=== PATIENT | male | born 1975 | race Caucasian/White ===

== ENCOUNTER 2016-12-12 02:33 | Emergency (ER) | payer OTHER ==
[~2016-12-12] VITALS: Ht 180.3 cm; Wt 76.3 kg
[2016-12-12 02:38] VITALS: TEMP 36.9; Ht 180.3 cm; Wt 76.3 kg
[2016-12-12] MEDS ORDERED: AMOXICILLIN HOME PACK 250 MG/TAB PO ONE (03:30)
[2016-12-12] MEDS ORDERED: AMOX500T3 PO (03:50)
--- NOTE | 2016-12-12 03:50 | EMERGENCY ROOM VISIT NOTE ---
ED Visit Note First contact with patient: 02:55 CHIEF COMPLAINT: Toothache HISTORY OF PRESENT ILLNESS: This 41-year-old male patient presented to the emergency department ambulatory complaining of left upper dental pain. The patient states that he has been having dental pain for the past one week. He states that the face was on last week and this has slightly improved. He has not contacted a dentist. He states he has not had a dentist for several years. He has been taking Motrin and Tylenol without relief. The pain is constant. He states his symptoms are worse when he is exposed to cold air. He rates his discomfort an 8/10. He denies any fever. The patient denies any discharge from the mouth. REVIEW OF SYSTEMS: A 6 system review of systems was completed with positives and pertinent negatives listed in the HPI. ALLERGIES: No known drug allergies MEDICATIONS: No chronic medications PMH: No significant past medical history. SOCIAL HISTORY: The patient lives locally with family. He is a smoker. PHYSICAL EXAM: Vitals are noted on the nurse's note and reviewed by myself. Vital signs stable. Temperature 36.9C orally. GENERAL: This is a 41-year-old male, in no acute distress, nondiaphoretic, well-developed well-nourished. Mouth: Very poor dentition. There are multiple decaying teeth. There is mild edema of the left upper gums. No discharge or signs of an abscess. The remainder of the pharynx and tonsils are without erythema, edema, or exudate. The airway is patent. There is no facial swelling, cervical or submandibular lymphadenopathy. The patient appears uncomfortable and in pain. The patient has overall poor dental hygiene. EARS: External auditory canals clear, tympanic membranes pearly bernal without erythema or effusion bilaterally. ED COURSE: The patient was evaluated as above. He has significantly decaying teeth and presents with acute pain of the left upper molars. He will be covered with amoxicillin for possible infection. Conservative measures were discussed. The patient was informed that he will need to follow-up with a dentist for definitive care. He was advised that the emergency department is not able to treat dental complaints. The patient verbalized understanding of my assessment and treatment plan and was discharged home in good condition. Medication reconciliation: I attest that I have personally reviewed the patient 's current medication list. Blood pressure screening: Patient was found to have normal blood pressure on screening and does not require follow-up. DIAGNOSIS: Dental infection Current/Historical Medications Scheduled Amoxicillin (Amoxil), 500 MG PO QID Allergies Coded Allergies: No Known Allergies (Unverified , 12/12/16) Vital Signs Date Time Temp Pulse Resp B/P (MAP) Pulse Ox O2 Delivery O2 Flow Rate FiO2 12/12/16 04:05 97 18 123/88 98 12/12/16 02:38 36.9 103 18 149/80 97 Room Air Medications Administered Medications (Trade) Dose Ordered Sig/Zoey Route Start Time Stop Time Status Last Admin Dose Admin Amoxicillin (Amoxil 250MG Home Pack) 1 homepack UD ONCE PO 12/12/16 03:30 12/12/16 03:31 DC 12/12/16 04:03 1 HOMEPACK Departure Information Impression Primary Impression: Dental infection Dispostion Home / Self-Care Condition GOOD Prescriptions Amoxicillin (AMOXIL) 500 Mg Tab 500 MG PO QID for 10 Days, #40 TAB Prov: Beatrice Mahmood ., QUINTIN 12/12/16 Referrals No Doctor, Assigned (PCP) Patient Instructions [facility] Additional Instructions You have been treated in the Emergency Department for Dental Pain. You were prescribed amoxicillin to be taken 4 times daily as prescribed. This is an antibiotic. All antibiotics have the potential to cause diarrhea. Stop this medication and contact a medical provider if you were to develop any significant adverse side effects including: wheezing, shortness of breath, passing out, vomiting, or a diffuse rash. Always take antibiotics as directed and COMPLETE the ENTIRE course regardless of the improvement of your symptoms. For pain control, you can use the following [id number] medicines (if >12 yo): - Regular strength (325mg/tab) Tylenol (acetaminophen) 2 tabs every 4-6 hours as needed. Do not exceed 12 tablets in a 24 hour period. Avoid taking more than 4 grams (4000 mg) of Tylenol per day. This includes any other sources of acetaminophen you may take on a regular basis. - Regular strength (200 mg/tab) Advil (ibuprofen) 1-2 tabs every 4-6 hours as needed. Do not exceed a dose of 3200 mg per day. Refrain from smoking cigarettes or using chewing tobacco until you have been evaluated by your dentist. Keeping beverages lukewarm and consuming soft foods can decrease your pain. Warm compresses over the affected area may offer some relief. You MUST seek evaluation of your dental pain by a dentist following your visit to the Emergency Department. The Emergency Department is not capable of treating dental issues long-term. You should call your dentist as soon as possible to make an appointment for evaluation of your dental pain. Follow up with Dr. Cherry [phone] [place] [address], [address] Return to the emergency department if you develop the following symptoms despite treatment course outlined above: fever, intractable pain, increased redness, swelling, or purulent discharge.
[2016-12-12 04:05] VITALS: BP 123/88; PULSE 97; O2SAT 98
== END 2016-12-12 04:05 | disposition home or self-care (01) ==
LOC: C.EDB 02:34
DX: K04.7 Periapical abscess without sinus (principal); F17.200 Nicotine dependence, unspecified, uncomplicated